=== PATIENT | male | born 1985 | race Caucasian/White ===

== ENCOUNTER 2024-07-28 13:56 | Emergency (ER) | payer OTHER ==
[~2024-07-28] VITALS: Ht 170.2 cm; Wt 115.7 kg
[2024-07-28 14:14] VITALS: BP 141/91; PULSE 92; RESP 19; TEMP 98.2; O2SAT 98
[2024-07-28] MEDS: HYDROcodone/APAP 5/325 MG 1 TAB TAB PO ONE (15:17)
[2024-07-28] MEDS: KETOROLAC 30 MG/ML VIAL IM ONE (15:19)
[2024-07-28] MEDS ORDERED: LID5T TP (15:53)
[2024-07-28] MEDS ORDERED: NAPR-337 PO (15:53)
[2024-07-28 16:02] VITALS: BP 141/91; PULSE 92; RESP 19; TEMP 98.2; O2SAT 98
== END 2024-07-28 16:02 | disposition home or self-care (01) ==
LOC: MED 13:56
DX: S39.012A Strain of muscle, fascia and tendon of lower back, initial encounter (principal); M54.16 Radiculopathy, lumbar region; M79.604 Pain in right leg; R03.0 Elevated blood-pressure reading, without diagnosis of hypertension; X58.XXXA Exposure to other specified factors, initial encounter; Y93.89 Activity, other specified; Y92.89 Other specified places as the place of occurrence of the external cause; Y99.8 Other external cause status
CPT/HCPCS: 96372; 99283; J1885